=== PATIENT | female | born 1975 | race Caucasian/White ===

== ENCOUNTER 2021-02-28 14:45 | Emergency (ER) | payer OTHER ==
[~2021-02-28] VITALS: Ht 170.2 cm; Wt 61.7 kg
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
--- NOTE | 2021-02-28 15:36 | NUR ---
ice pack given tolerated well.
[2021-02-28] MEDS ORDERED: HYDR-4209 PO (15:41)
[2021-02-28] MEDS ORDERED: IBUP-1955 PO (15:41)
[2021-02-28] MEDS ORDERED: IBUPROFEN 800 MG TABLET PO ONE (15:45)
[2021-02-28] MEDS ORDERED: IBUPROFEN 800 MG TABLET ONE (15:46)
== END 2021-02-28 15:49 | disposition home or self-care (01) ==
LOC: ER 14:45
DX: S39.92XA Unspecified injury of lower back, initial encounter (principal); S49.92XA Unspecified injury of left shoulder and upper arm, initial encounter; V49.40XA Driver injured in collision with unspecified motor vehicles in traffic accident, initial encounter; Y92.414 Local residential or business street as the place of occurrence of the external cause
CPT/HCPCS: A4663